=== PATIENT | female | born 1935 | race Caucasian/White ===

== ENCOUNTER 2016-10-30 12:52 | Emergency (ER) | payer OTHER, MEDICAID ==
--- NOTE | 2016-10-30 13:02 | EDPHY ---
H & P Time Seen by Provider: 10/30/16 12:55 Constitutional: Initial Vital Signs Temperature (C) 36.5 C 10/30/16 13:08 Heart Rate 94 10/30/16 13:08 Respiratory Rate 30 H 10/30/16 13:08 Blood Pressure 123/80 H 10/30/16 13:08 O2 Sat (%) 94 10/30/16 13:08 O2 Delivery Mode Nasal Cannula O2 (L/minute) 2 Allergies/Adverse Reactions: levofloxacin [From Levaquin] Allergy (Verified 10/30/16 13:06) Penicillins Allergy (Verified 10/30/16 13:06) Home Medications: Medication Instructions Recorded Ergocalciferol 10/30/16 Lisinopril 10/30/16 Menthol 10/30/16 Elvaston 7.5-325 Tablet 10/30/16 Tylenol 10/30/16 Zyprexa 10/30/16 Medical Decision Making - Diagnostics Imaging Results: Imaging Impressions Chest X-Ray 10/30/16 13:00 Impression: No evidence for aspiration pneumonia. Imaging: I viewed and interpreted images myself ED Course/Re-evaluation: CHIEF COMPLAINT: Choked on a hotdog HISTORY OF PRESENT ILLNESS: This patient is a 81 year old female with history of dysphagia arriving via EMS from [place] [facility] after choking on a hotdog about 20 minutes ago for evaluation of possible aspiration. She was eating a hotdog for lunch and human services case manager witnessed her begin choking and turn ashen. The human services case manager were able to perform the Heimlich maneuver on the patient, who subsequently coughed out two piece of hotdog. While in transport with EMS, she coughed out a third piece, and began to improve. Currently, she is able to phonate with full sentences, and her oxygen saturation is 95% with her usual 2L of oxygen. She is not currently in any respiratory distress. No other complaints. REVIEW OF SYSTEMS: A 10 point review of systems was performed and is negative with the exception of the elements mentioned in the history of present illness. PHYSICAL EXAM: General Appearance: Alert, well hydrated, appropriate, and non-toxic appearing. Head: Atraumatic without scalp tenderness or obvious injury Eyes: Pupils pinpoint, round, reactive to light and accommodation, EOMI, no trauma, no injection. Ears: Clear bilaterally, no perforation, normal landmarks Nose: Atraumatic, no rhinorrhea, clear. Throat: There is no erythema or exudates, no lesions, normal tonsils, mucus membranes moist. Neck: Supple, non-tender, no lymphadenopathy. Respiratory: Mild wheezes bilaterally. No obstruction. No retractions, no distress, and no accessory muscle use. Cardiovascular: Regular rate and rhythm, no murmurs, rubs, or gallops. Bilateral carotid, radial, dorsalis pedis, and posterior tibial pulses intact. Good capillary refill all extremities. Gastrointestinal: Abdomen is soft, non-tender, non-distended, no masses, no rebound, no guarding, no peritoneal signs. Musculoskeletal: Normal active ROM of all extremities, atraumatic. Neurological: Alert, appropriate, and interactive. The patient has normal DTRs and non-focal cranial nerves, motor, sensory, and cerebellar exam. Skin: No rashes, good turgor, no nodules on palpation. PAST MEDICAL/SURGICAL HISTORY: Dementia, malignant neoplasm of bone, COPD, hypertension, depression, vitamin d deficiency, dysphagia, wheezing, pemphigus, allergic rhinitis, edema, mood disorder SOCIAL HISTORY: Lives at [facility]. DIFFERENTIAL DIAGNOSIS: Includes but is not limited to aspiration, aspiration pneumonia, foreign body, [ ]. MEDICAL DECISION MAKING: This patient is an 81 year old female presenting follow choking on a hot dog. The foreign body is likely no longer present, as the patient is able to phonate well and is in no respiratory distress. She has coughed out three pieces of hot dog since the event. Plan for chest x-ray to evaluate for possible aspiration or remaining foreign body. X-ray shows no evidence of aspiration, aspiration pneumonia. No evidence of foreign body or air trapping. Plan to discharge back to [facility] in good condition. Follow up and return precautions discussed. The patient is comfortable with this plan. Departure - Departure Disposition: Home, Routine, Self-Care Clinical Impression: Dysphagia Qualifiers: Dysphagia type: oropharyngeal phase Qualified Code(s): R13.12 - Dysphagia, oropharyngeal phase Aspiration into airway Qualifiers: Encounter type: initial encounter Qualified Code(s): T17.908A - Unspecified foreign body in respiratory tract, part unspecified causing other injury, initial encounter Condition: Good Instructions: Aspiration Precautions (ED) Additional Instructions: 1. Make sure to chew your food slowly and carefully. 2. We recommend a followup swallowing test to reevaluate your dysphagia. 3. Return to the Emergency Department if you develop any symptoms or worsening of condition. Referrals: Yanick Martinez MD [Medical Doctor] - As per Instructions Report Scribed for: Watson Inman Report Scribed by: Margarita Mcdonald Date of Report: 10/30/16 Time of Report: 14:12
[2016-10-30 13:12] VITALS: TEMP 97.7
[2016-10-30 14:27] VITALS: BP 108/65; PULSE 89; RESP 18; O2SAT 95
== END 2016-10-30 15:08 | disposition home or self-care (01) ==
LOC: EDUNIT#
DX: T17.928A Food in respiratory tract, part unspecified causing other injury, initial encounter (principal); R13.12 Dysphagia, oropharyngeal phase; X58.XXXA Exposure to other specified factors, initial encounter